=== PATIENT | male | born 1990 | race Two or more races ===

== ENCOUNTER 2025-03-03 01:53 | Emergency (ER) | payer MEDICAID, SELFPAY ==
[2025-03-03 02:04] VITALS: BP 152/102; PULSE 98; RESP 16; TEMP 37.1; O2SAT 97
--- NOTE | 2025-03-03 02:06 | EDNOTE_ITS ---
ED Abdominal Pain RME/HPI General Chief Complaint: Abdominal Pain Stated complaint: RIGHT LOWER ABDOMINAL PAIN Time seen by provider: 03/03/25 02:16 Arrival date/time: 03/03/25 01:53 RME / HPI RME / HPI narrative: See [facility] for Dr. Ford's HPI Documentation. Related Data Previous Rx's ?Medication ?Instructions ?Recorded Sulfamethoxazole/Trimethoprim DS * 1 tab PO BID #14 ta bs 12/09/15 (BACTRIM DS *) acetaminophen 300 mg-codeine 30 mg 2 tab PO Q8H PRN pa in #20 tabs 03/03/25 tablet ondansetron 4 mg disintegrating 4 mg PO TID PRN nausea and 03/03/25 tablet vomiting 30 days #15 tabs Allergies Allergy/AdvReac Type Severity Reaction Status Date / Time NKA* Allergy Uncoded 12/11/15 17:15 Review of Systems Review of Systems Systems Reviewed: All systems reviewed, normal except as documented ED Exam Narrative Physical exam: See [facility] for Dr. Ford's Physical Exam Documentation. Course Quality Measures none Orders Category Date Time Status Saline [Insert IV] NOW Care 03/03/25 02:[address] abdomen pelvis wo con Stat Exams 03/03/25 02:09 Taken US gall bladder Stat Exams 03/03/25 02:09 Taken Amylase Stat Lab 03/03/25 02:35 Completed Bilirubin,Direct Stat Lab 03/03/25 02:35 Completed CBC Stat Lab 03/03/25 02:35 Completed CMP [Comprehensive Metabolic Panel] Stat Lab 03/03/25 02:35 Completed Lipase Stat Lab 03/03/25 02:35 Completed Magnesium Stat Lab 03/03/25 02:35 Completed UA, C/S IF [Urinalysis, C/S if Indicated] Stat Lab 03/03/25 02:41 Completed Famotidine Inj [Pepcid Inj] Med 03/03/25 03:18 Discontinued 20 mg IVP X1 ONE Ketorolac Inj [Toradol Inj] Med 03/03/25 02:08 Discontinued 30 mg IVP X1 ONE Morphine* Inj Med 03/03/25 02:08 Discontinued 4 mg IV X1 ONE Ondansetron Inj [Zofran Inj] Med 03/03/25 02:08 Discontinued 4 mg IVP X1 ONE Pantoprazole Inj [Protonix Inj] Med 03/03/25 03:18 Discontinued 40 mg IVP X1 ONE Ringers Lactated 1000 ml [Lactated Ringers] 1,000 ml Med 03/03/25 02:08 Discontinued IV 1,000 mls/hr Vital Signs Vital signs: Vital Signs Temperature 98.8 F 03/03/25 02:04 Pulse Rate 98 03/03/25 02:04 Respiratory Rate 16 03/03/25 02:04 Blood Pressure 152/102 H 03/03/25 02:04 Pulse Oximetry (%) 97 03/03/25 02:04 Oxygen Delivery Method Room Air 03/03/25 02:04 Abdominal Pain MDM MDM Narrative MDM Narrative:: This section includes all my notes and documentations, including HPI, PE, and ED course. David Ford MD HPI: 34 yo male presents with RUQ and epigastric tenderness and vomiting for several days. Admits to alcohol consumption for several days. No hematemesis or coffee-ground emesis. No rectal bleeding or tarry stools. No history of abdominal surgery. No other complaints. ROS: All negative except as documented in HPI. Physical Exam: General: Alert and oriented. No acute distress when remaining still. Eyes: Conjunctivae and lids clear. ENT: No nasal congestion. Neck: Supple. Heart: RRR. Lungs: No respiratory distress. Good air movement. No rhonchi, wheezing, rales. Abdomen: Soft RUQ and epigastric tenderness. Normal bowel sounds. No distension. No rebound or guarding. Back: No CVA tenderness. Skin: Warm and dry. Neuro: Alert and oriented X 3. I reviewed all diagnostic test results: My review of the abdominal CT report is pancreatitis. My review of the gallbladder US report is NAD. Blood tests and urine tests remarkable for amylase 135 and lipase 185. At this point, diagnoses include: Pancreatitis Treatment here included: LR Toradol 30 mg IV Morphine 4 mg IV Zofran 4 mg IV Protonix 40 mg IV Pepcid 20 mg IV Recommended a trial of outpatient treatment. Based on my best medical judgment, made decision no further evaluation or treatment indicated at this time. Patient and understands and agrees to the discharge instructions customized and printed, see below. Discharge Instructions from Dr. Ford printed for you: 1.? After evaluation, your symptoms are due to pancreatitis from alcohol. 2. There is no other condition such as appendicitis needing surgery. 3.? Zofran for nausea/vomiting.? Tylenol with codeine for severe pain. 4.? Absolutely no alcohol.? Severe pancreatitis eventually can be fatal. 5.? Clear liquid diet for 24 hours and advance slowly as tolerated. 6.? See a private doctor on 03/04/25 for recheck and further care. Ask to review all test results and official radiology reports, to make sure you receive all necessary follow-ups and monitoring. Ask for help to quit alcohol. Ask for help until you are completely better. 7.? Seek immediate medical care with worsening or with any concerns. David Ford MD Patient data [facility] (No prior ED records available for review) and EMS form Clinical information provided by:: patient Social determinants that could affect healthcare access:: none Patient has the following chronic illnesses:: None Reported How is presenting disease/condition affected by chronic disease/condition?: no chronic disease Evaluation data The following diagnostics were reviewed and interpreted by me:: lab results and radiology exam(s) Lab and/or radiology exams considered but not ordered:: None Interpretation Summary: I reviewed all diagnostic test results: My review of the abdominal CT report is pancreatitis. My review of the gallbladder US report is NAD. Blood tests and urine tests remarkable for amylase 135 and lipase 185. Medications / Prescriptions Medications or Prescriptions considered but not ordered:: None Medication administrations:: Medication Administration History Discontinued Medications Famotidine (Famotidine Inj 10 Mg/Ml Vial 2 Ml) 20 mg IVP X1 ONE Stop: 03/03/25 03:19 Lactated Ringer's (Lactated Ringers) 1,000 mls @ 1,000 mls/hr IV .Q1H ONE Stop: 03/03/25 03:07 Last Admin: 03/03/25 03:06 Dose: 1,000 mls/hr Documented By: SR Ketorolac Tromethamine (Ketorolac Inj 30 Mg/Ml Vial) 30 mg IVP X1 ONE Stop: 03/03/25 02:09 Last Admin: 03/03/25 03:05 Dose: 30 mg Documented By: SR Morphine Sulfate (Morphine Sulf Inj 4 Mg/Ml Vial) 4 mg IV X1 ONE Stop: 03/03/25 02:09 Last Admin: 03/03/25 03:05 Dose: 4 mg Documented By: SR Ondansetron HCl (Ondansetron Inj 2 Mg/Ml Inj 2 Ml) 4 mg IVP X1 ONE; Protocol Stop: 03/03/25 02:09 Last Admin: 03/03/25 03:05 Dose: 4 mg Documented By: SR Pantoprazole Sodium (Pantoprazole Inj 40 Mg Vial) 40 mg IVP X1 ONE Stop: 03/03/25 03:19 Treatment here included: LR Toradol 30 mg IV Morphine 4 mg IV Zofran 4 mg IV Protonix 40 mg IV Pepcid 20 mg IV Consultations Consultation(s) initiated? (list below): No Diagnosis Differential diagnosis abdominal pain: acute appendicitis, calculus of kidney, constipation, diverticulitis, gastroenteritis, pancreatitis and small bowel obstruction Most likely diagnosis given after review of the tests above:: Pancreatitis Admission Indicated Admission indicated?: not indicated Explain why admission is indicated or not indicated:: With significant improvement and no condition needing emergent intervention, there was no indication for admission. Admission Request Was there a request for admission?: No Disposition Plan Disposition Plan: Discharge Discharge Attestation Discharge Attestation: The patient and all family members were given an opportunity to ask questions and understood the discharge instructions. Discharge instructions specifically effects, indications for sooner follow up or return to the emergency department, and the expected course of current diagnosis. Patient condition: Stable Discharge Plan Plan Patient Disposition: HOME (Self Care) Prescriptions/Referrals Prescriptions/Med Rec: New acetaminophen-codeine 300-30 mg tablet 2 tab PO Q8H MDD 6 PRN (Reason: pain) Qty: 20 0RF ondansetron 4 mg tablet,disintegrating 4 mg PO TID PRN (Reason: nausea and vomiting) 30 Days Qty: 15 0RF No Action Sulfamethoxazole/Trimethoprim DS * (BACTRIM DS *) 1 TAB tablet 1 tab PO BID Qty: 14 0RF Problem List Clinical Impression: Pancreatitis Patient/Caregiver Discharge Instructions Discharge Activity: activity as tolerated Education Materials: ED Pancreatitis Additional Instructions: Discharge Instructions from Dr. Ford printed for you: 1.? After evaluation, your symptoms are due to pancreatitis from alcohol. 2. There is no other condition such as appendicitis needing surgery. 3.? Zofran for nausea/vomiting.? Tylenol with codeine for severe pain. 4.? Absolutely no alcohol.? Severe pancreatitis eventually can be fatal. 5.? Clear liquid diet for 24 hours and advance slowly as tolerated. 6.? See a private doctor on 03/04/25 for recheck and further care. Ask to review all test results and official radiology reports, to make sure you receive all necessary follow-ups and monitoring. Ask for help to quit alcohol. Ask for help until you are completely better. 7.? Seek immediate medical care with worsening or with any concerns. Instrucciones de isaac del Dr. Ford impresas para usted: 1. Tras la evaluaci?n, taina s?ntomas se deben a andria pancreatitis causada por el alcohol. 2. No presenta ninguna otra afecci?n, kierra apendicitis, que requiera cirug?a. 3. Zofran para las n?useas y los v?mitos. Tylenol con code?na para el dolor intenso. 4. Abst?ngase completamente de consumir alcohol. La pancreatitis grave puede ser mortal. 5. Dieta l?quida adiel radah 24 horas y avance gradualmente seg?n la tolerancia. 6. Consulte con un m?dico particular el [id number] para andria revisi?n y seguimiento. Solicite revisar todos los resultados de las pruebas e informes radiol?gicos oficiales para asegurarse de recibir todo el seguimiento y la monitorizaci?n necesarios. Pida ayuda para dejar el alcohol. Pida ayuda hasta que se recupere por completo. 7. Busque atenci?n m?dica inmediata si taina s?ntomas empeoran o si tiene alguna inquietud. Print Language: Yoruba Stand Alone Forms: Lorie Award Info., Patient Portal Info Letter
--- NOTE | 2025-03-03 02:09 | XR_ITS ---
Examination: CT abdomen and pelvis without contrast. Coronal 3-D reconstructions. Sagittal 2-D reconstructions. Date and time of exam: March 03, 2025, 0223 hours INDICATIONS: Right lower abdominal pain beginning today CTDI: vol (mGy): 7.90 DLP: (mGycm): 473 Technique: Axial images of the abdomen have been obtained, 3 mm slice thickness Intravenous contrast material has not been administered. Low dose protocols were performed. One or more of the following dose reduction techniques were used; automated exposure control, adjustment of the mA and/or KV according to patient size, use of iterative reconstruction technique. Findings: Fatty infiltration throughout the liver no focal liver or splenic lesions No gallstones, gallbladder is distended Suspicious for minimal edema around the pancreatic head Aorta normal size No bowel obstruction Normal appendix No diverticulitis Negative for prostatomegaly Contracted urinary bladder. Small fat-containing left inguinal hernia Intact osseous structures IMPRESSION: Suspicious for minimal edema around the pancreatic head
--- NOTE | 2025-03-03 02:09 | XR_ITS ---
Examination: Abdomen sonogram, Limited Date and time of exam: March 03, 2025, 0245 hours INDICATIONS: Right lower abdominal pain radiating to the back with nausea beginning 2 days ago Technique: Real-time tellez scale transabdominal sonographic images of the upper abdomen obtained. Findings: Normal gallbladder Normal common bile duct 0.2 cm Pancreatic head 2.7 cm Liver 13.7 cm lobular contour no focal liver lesions Normal hepatopetal portal venous flow Patent IVC IMPRESSION: Normal gallbladder
[2025-03-03 02:38] VITALS: PULSE 66; RESP 19; TEMP 36.7; O2SAT 97
--- NOTE | 2025-03-03 02:48 | PC.NURSE ---
Patient came in to the ED from home in a private vehicle accompanied by family member. Patient endorses right upper abdominal pain 9/10 x 2 days worsening over time and occasional nausea and vomiting. Patient denies blood in the emesis. Blood and urine samples have been collected and sent to the lab for testing, IV access achieved successfully, patient taken to get US done.
[2025-03-03 02:50] LABS: Basophils # (Auto) 0.0 Thou/mm3 (0.0-0.2); Basophils % (Auto) 0 % (0-2.5); Eosinophils # (Auto) 0.0 Thou/mm3 (0.0-0.5); Eosinophils % (Auto) 0 % (0-10); Hematocrit 47.8 % (41.0-53.0); Hemoglobin 16.3 g/dL (13.5-16.0); Immature Granulocytes Auto 0.02 Thou/mm3 (0.00-0.00); Lymphocytes # (Auto) 1.2 Thou/mm3 (1.0-4.8); Lymphocytes % (Auto) 16 % (10-50); Mean Corpuscular HGB Conc 34.1 g/dl (31.0-37.0); Mean Corpuscular Hemoglobin 30.9 pg (25.0-35.0); Mean Corpuscular Volume 91 fL (80-100); Monocytes # (Auto) 0.9 Thou/mm3 (0.0-0.8); Monocytes % (Auto) 12 % (0-12); Neutrophils # (Auto) 5.3 Thou/mm3 (1.8-7.7); Neutrophils % (Auto) 71 % (37-80); Nucleated Red Blood Cell # 0.00 Thou/mm3 (0.00-0.00); Nucleated Red Blood Cell % 0 /100 WBC (0); Platelet Count 166 Thou/mm3 (140-440); RDW Standard Deviation 44.9 fL (35.1-43.9); Red Blood Count 5.28 Miln/mm3 (4.50-5.90); White Blood Count 7.4 Thou/mm3 (3.8-10.6)
[2025-03-03 03:01] LABS: Alanine Aminotransferase 31 U/L (10-49); Albumin, Serum 5.3 gm/dL (3.5-5.0); Albumin/Globulin Ratio 1.8 (1.2-2.2); Alkaline Phosphatase 103 U/L (46-116); Amylase 135 U/L (30-118); Anion Gap 10 (7-16); Aspartate Amino Transferase 40 U/L (0-34); BUN/Creatinine Ratio 6 Ratio (12-20); Bilirubin,Direct 0.4 mg/dL (0.0-0.3); Bilirubin,Total 1.2 mg/dL (0.3-1.2); Blood Urea Nitrogen < 5 mg/dL (9-23); Calcium 9.9 mg/dL (8.3-10.6); Calcium (Corrected) 9.9 mg/dL (8.5-10.1); Carbon Dioxide 29.0 mMol/L (20.0-31.0); Chloride 99 mMol/L (98-107); Creatinine (Component) 0.8 mg/dL (0.6-1.3); Globulin 2.9 gm/dL (2.3-3.5); Glucose 111 mg/dL (74-106); Lipase 185 U/L (12-53); Magnesium 2.0 mg/dL (1.6-2.6); Osmolality,Calculated 273 (275-295); Potassium 3.6 mMol/L (3.4-5.1); Sodium 138 mMol/L (136-145); Total Protein 8.2 gm/dL (5.7-8.2); eGFR > 60 See Note
[2025-03-03 03:05] VITALS: TEMP 36.7
[2025-03-03] MEDS: KETOROLAC INJ 30 MG/ML VIAL IVP (03:05)
[2025-03-03] MEDS: ONDANSETRON INJ 2 MG/ML INJ 2 ML 4 MG IVP (03:05)
[2025-03-03] MEDS: MORPHINE SULF INJ 4 MG/ML VIAL IV (03:05)
[2025-03-03] MEDS: RINGERS LACTATED 1000 ML 1,000 ML IV (03:06)
--- NOTE | 2025-03-03 03:26 | PRELIM_ITS ---
CT scan of the abdomen and pelvis without intravenous contrast (axial sections with sagittal and coronal reformats). March 03, 2025 at 0222 hours Clinical History: Right sided abdominal pain. Comparison: No prior study is available for comparison. Findings: The lung bases are clear. Fatty liver infiltration. The gallbladder , adrenal glands, and kidneys are unremarkable. The appendix is normal, best seen on image 122. The urinary bladder is normal. No urinary tract stone or obstruction is identified. No free intraperitoneal air or fluid. Bowel caliber is normal. There is mild fat stranding around the head and uncinate process of the pancreas. No peripancreatic fluid collection. No visible intra or extrahepatic biliary ductal pancreatic duct dilatation. Impression: 1. No urinary tract stone or obstruction is identified. 2. Probably acute pancreatitis. 3. No urinary tract stone or obstruction is identified. Report Electronically Signed By: Vineet Rodriguez 03/03/2025 3:25:58 AM [EST]
[2025-03-03 03:32] LABS: Collection Type, Urine Clean Catch; Squamous Epithelial Cell,Urine 0 /hpf (0-5)
[2025-03-03 03:48] VITALS: PULSE 68; RESP 19; TEMP 36.8; O2SAT 98
[2025-03-03 03:52] LABS: Amorphous Crystals,Urine Present (Absent); Bacteria,Urine Rare; Bilirubin,Urine Negative (Negative); Blood,Urine Negative (Negative); Clarity,Urine Clear (Clear/Hazy); Color,Urine Yellow (Lt Yel-Yel); Culture Indicated,Urine Not Indicated; Glucose, Urine Negative (Negative); Hyaline Casts,Urine < 1 /hpf (0-1); Ketones,Urine 1+ (Negative); Leukocyte Esterase,Urine Negative (Negative); Nitrite,Urine Negative (Negative); PH,Urine 6.5 (5.0-7.0); Protein,Urine 1+ (Neg - Trace); RBC,Urine 1 /hpf (0-3); Specific Gravity,Urine 1.017 (1.001-1.035); Urobilinogen,Urine 8.0 mg/dL (0.0-1.0); WBC,Urine 1 /hpf (0-5)
--- NOTE | 2025-03-03 04:22 | PRELIM_ITS ---
Gallbladder ultrasound. March 03, 2025 0245 hours Clinical history: RUQ tenderness Comparison: None Findings: Gallbladder wall is 3 mm thick. Common bile duct is 2 mm in diameter. Liver is 13.7 cm long. Main portal vein is antegrade. No gallbladder sludge or calculi. No fluid around the gallbladder. Liver is hyperechoic with nodular contour. Impression: Fatty liver. Possible hepatic cirrhosis. Normal gallbladder. Report Electronically Signed By: Vineet Rodriguez 03/03/2025 4:21:00 AM [EST]
== END 2025-03-03 03:48 | disposition home or self-care (01) ==
PROVIDERS: Emergency Provider Emergency Medicine
DX: K85.90 Acute pancreatitis without necrosis or infection, unspecified (principal); R11.0 Nausea
CPT/HCPCS: 36415; 74176; 76705; 80053; 81001; 82150; 82248; 83690; 83735; 85025; 96374; 96375; 99283; J1885; J2270; J2405; J7120

== ENCOUNTER 2025-03-03 14:15 | Inpatient (IN) | payer MEDICAID, SELFPAY ==
[2025-03-03 14:16] VITALS: BMI 29.7
[2025-03-03 14:23] VITALS: BP 163/100; PULSE 66; RESP 20; TEMP 37.1; O2SAT 98
--- NOTE | 2025-03-03 15:19 | EKG_ITS ---
[facility] Test Date: 2025-03-03 Pat Name: RADHA POOLE Department: Room: - Gender: Male Registered Midwife: : 1990 Requested By: Myles Wood Order Number: [id number] Reading MD: Myles Wood Measurements Intervals [place] Rate: 53 P: 37 PA: 150 QRS: 20 QRSD: 118 T: 17 QT: 428 QTc: 403 Interpretive Statements SINUS BRADYCARDIA MODERATE INTRAVENTRICULAR CONDUCTION DELAY [110+ ms QRS DURATION] No previous ECG available for comparison /store/S0/[id number]/[id number].pdf
[2025-03-03] MEDS: SODIUM CHLORIDE 0.9% 1000 ML 1,000 ML 999 ML IV ×2 (15:24→17:06)
--- NOTE | 2025-03-03 15:24 | EDNOTE_ITS ---
ED General RME/HPI General Chief complaint: Abdominal Pain Stated complaint: ABD PAIN, NAUSEA, DIZZINESS DX WITH PANCREAT Time Seen by Provider: 03/03/25 15:18 Arrival date/time: 03/03/25 14:15 CC: Abdominal pain HPI patient has had abdominal pain states he has pancreatitis, review the medical record shows that he was here at 3 AM this morning had a complete workup was discharged with a lipase of 185. Prescriptions were sent to his pharmacy [facility] which is closed today. Patient promptly returned today stating his pain is a 10 out of 10. The patient is not writhing. Heart rate is 66 upon initial assessment he is not in any acute distress. At 1527, the patient admits he is only here for pain medicine as he cannot get access to his prescriptions from last night's visit due to his pharmacy being closed today. Related Data Previous Rx's ?Medication ?Instructions ?Recorded Sulfamethoxazole/Trimethoprim DS * 1 tab PO BID #14 ta bs 12/09/15 (BACTRIM DS *) acetaminophen 300 mg-codeine 30 mg 2 tab PO Q8H PRN pa in #20 tabs 03/03/25 tablet ondansetron 4 mg disintegrating 4 mg PO TID PRN nausea and 03/03/25 tablet vomiting 30 days #15 tabs Allergies Allergy/AdvReac Type Severity Reaction Status Date / Time No Known Allergies Allergy Unverified 03/03/25 15:21 Review of Systems Review of Systems Narrative Review of Systems: GEN: No fever, no chills, no weight loss EYES: No discharge, no visual changes, no pain HEENT: No ear pain, no congestion, no sore throat PULM: No shortness of breath, no cough, no congestion CV: No chest pain, no dyspnea on exertion, no palpitations GI: No nausea, no vomiting, no diarrhea, + pain, no constipation : No frequency, no urgency, no dysuria MUSC/SKEL: No joint pain, no back pain SKIN: No rash PSYCH: No hallucinations, no depression HEME/LYMPH: No easy bleeding or bruising tendencies NEURO: No weakness, no headache Past Medical History Past Medical History CARDIAC: Negative Cardiac Disorders or Congestive Heart Failure RESPIRATORY: Negative Chronic Obstructive Pulmonary Disease (COPD) GASTROINTESTINAL: Negative Gastrointestinal Disorders GENITOURINARY: Negative Genitourinary Disorders or Renal Disease MUSCULOSKELETAL: Negative Musculoskeletal Disorders ENDOCRINE: Negative Endocrine Disorders, Diabetes Mellitus Type 1 or Diabetes Mellitus Type 2 HEMATOLOGIC: Negative Blood Disorders Family History FAMILY HISTORY: Negative Family Cardiac Disorders Social History SMOKING STATUS: Never smoker ED Exam Narrative Physical exam: [General: In mild discomfort but not in any acute distress Head normocephalic HEENT: Within acceptable limits Neck is supple nontender Chest equal chest rise nontender to palpation Respiratory: Clear to auscultation no wheezes crackles or rubs CV: Rate rhythm is regular no murmurs rubs or clicks Abdomen is soft nontender no masses positive bowel sounds all 4 quadrants Back: No CVA tenderness no spinous process tenderness from cervical spine thoracic and lumbar spine Skin: Intact no petechiae rash induration ulceration or crepitus Extremities: Moving all extremity against resistance cap refill less than 2 seconds neurosensory intact Neuro: Awake alert oriented x3 Glascow coma 15 no focal deficits] Course Course Course Narrative: Review the laboratory results show the transaminitis and T. bili are unchanged and noted that last night the ultrasound and the CT show there is no CBD dilatation so I am not too worried at this time about choledocholithiasis. Alcohol level is 0. However the patient has had 100 point rise in the lipase some concern the patient will be back in 12 hours as this continues to rise. Therefore this patient's case was discussed with Dr. Gonzáles who agrees to accept the patient on behalf of Dr. Galvan, attending, who agrees to accept the patient for admission. Quality Measures none Orders Category Date Time Status EKG (ED ONLY) *Do not use* NOW Care 03/03/25 15:19 Completed Saline [Insert IV] NOW Care 03/03/25 15:19 Active EKG (ED Only) Stat Exams 03/03/25 15:19 Draft Alcohol, Blood Medical Stat Lab 03/03/25 15:20 Completed B-Type Natriuretic Peptide Stat Lab 03/03/25 15:20 Completed CBC Stat Lab 03/03/25 15:20 Completed Comprehensive Metabolic Panel Stat Lab 03/03/25 15:20 Completed Drug Screen,Urine Stat Lab 03/03/25 15:30 Completed Lipase Stat Lab 03/03/25 15:20 Completed Magnesium Stat Lab 03/03/25 15:20 Completed Partial Thromboplastin Time Stat Lab 03/03/25 15:20 Completed Prothrombin Time with INR Stat Lab 03/03/25 15:20 Completed Urinalysis, C/S if Indicated Stat Lab 03/03/25 15:30 Completed Morphine* Inj Med 03/03/25 16:39 Discontinued 4 mg IVP X1 ONE Ondansetron Inj [Zofran Inj] Med 03/03/25 16:39 Discontinued 4 mg IVP X1 ONE Sodium Chloride 0.9% 1000 ml [Ns] 1,000 ml Med 03/03/25 16:40 Active IV 125 mls/hr Sodium Chloride 0.9% 1000 ml [Ns] 1,000 ml Med 03/03/25 15:19 Discontinued IV 999 mls/hr Sodium Chloride 0.9% 1000 ml [Ns] 1,000 ml Med 03/03/25 16:43 Active IV 999 mls/hr oxyCODONE/APAP 5/325 [Percocet 5/325] Med 03/03/25 15:27 Discontinued 1 tab PO X1 ONE Vital Signs Vital signs: Vital Signs Temperature 98.8 F 03/03/25 14:23 Pulse Rate 66 03/03/25 14:23 Respiratory Rate 20 03/03/25 14:23 Blood Pressure 163/100 H 03/03/25 14:23 Pulse Oximetry (%) 98 03/03/25 14:23 Oxygen Delivery Method Room Air 03/03/25 14:23 Discharge Plan Plan Patient Disposition: HOME (Self Care) Prescriptions/Referrals Prescriptions/Med Rec: No Action Sulfamethoxazole/Trimethoprim DS * (BACTRIM DS *) 1 TAB tablet 1 tab PO BID Qty: 14 0RF acetaminophen-codeine 300-30 mg tablet 2 tab PO Q8H MDD 6 PRN (Reason: pain) Qty: 20 0RF ondansetron 4 mg tablet,disintegrating 4 mg PO TID PRN (Reason: nausea and vomiting) 30 Days Qty: 15 0RF Referrals: No Primary/Family,Physician [Primary Care Provider] - In 1 week Problem List Clinical Impression: Pancreatitis, Intractable abdominal pain Patient/Caregiver Discharge Instructions Print Language: Turkmen Stand Alone Forms: Lorie Award Info., Patient Portal Info Letter PA/FLIGHT OPERATIONS INSPECTOR Supervising Physician PA/FLIGHT OPERATIONS INSPECTOR Supervising Physician: Myles Saldana ENP [facility] Medical Records reviewed [facility] Meds/Rx considered, not ordered None Labs/Rad/Tests considered, not ordered None Chronic Illness/Social Conditions Explain: Region pancreatitis diagnosis, drinks 3 beers every day. Medication Administration(s) Medication Administration History Sodium Chloride (Ns) 1,000 mls @ 125 mls/hr IV .Q8H KLEVER Stop: 04/02/25 16:39 Last Admin: 03/03/25 17:06 Dose: 125 mls/hr Documented By: BD Sodium Chloride (Ns) 1,000 mls @ 999 mls/hr IV .Q1H1M ONE Stop: 03/03/25 17:43 Last Admin: 03/03/25 17:06 Dose: 999 mls/hr Documented By: BD Discontinued Medications Sodium Chloride (Ns) 1,000 mls @ 999 mls/hr IV .Q1H1M ONE Stop: 03/03/25 16:19 Last Infusion: 03/03/25 16:44 Dose: Infused Documented By: Admin: 03/03/25 15:24 Dose: 999 mls/hr Documented By: BY Morphine Sulfate (Morphine Sulf Inj 4 Mg/Ml Vial) 4 mg IVP X1 ONE Stop: 03/03/25 16:40 Last Admin: 03/03/25 17:05 Dose: 4 mg Documented By: BD Ondansetron HCl (Ondansetron Inj 2 Mg/Ml Inj 2 Ml) 4 mg IVP X1 ONE; Protocol Stop: 03/03/25 16:40 Last Admin: 03/03/25 17:05 Dose: 4 mg Documented By: BD Oxycodone/Acetaminophen (Oxycodone/Apap 5/325 Tablet) 1 tab PO X1 ONE Stop: 03/03/25 15:28 Last Admin: 03/03/25 15:36 Dose: 1 tab Documented By: BY
--- NOTE | 2025-03-03 15:27 | PC.NURSE ---
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
[2025-03-03 15:38] LABS: Collection Type, Urine Clean Catch; Squamous Epithelial Cell,Urine 0 /hpf (0-5); WBC,Urine 0 /hpf (0-5)
[2025-03-03 15:45] LABS: Basophils # (Auto) 0.0 Thou/mm3 (0.0-0.2); Basophils % (Auto) 0 % (0-2.5); Eosinophils # (Auto) 0.0 Thou/mm3 (0.0-0.5); Eosinophils % (Auto) 0 % (0-10); Hematocrit 48.3 % (41.0-53.0); Hemoglobin 16.3 g/dL (13.5-16.0); Immature Granulocytes Auto 0.02 Thou/mm3 (0.00-0.00); Lymphocytes # (Auto) 0.4 Thou/mm3 (1.0-4.8); Lymphocytes % (Auto) 5 % (10-50); Mean Corpuscular HGB Conc 33.7 g/dl (31.0-37.0); Mean Corpuscular Hemoglobin 31.2 pg (25.0-35.0); Mean Corpuscular Volume 93 fL (80-100); Monocytes # (Auto) 0.6 Thou/mm3 (0.0-0.8); Monocytes % (Auto) 7 % (0-12); Neutrophils # (Auto) 7.0 Thou/mm3 (1.8-7.7); Neutrophils % (Auto) 87 % (37-80); Nucleated Red Blood Cell # 0.00 Thou/mm3 (0.00-0.00); Nucleated Red Blood Cell % 0 /100 WBC (0); Platelet Count 146 Thou/mm3 (140-440); RDW Standard Deviation 46.0 fL (35.1-43.9); Red Blood Count 5.22 Miln/mm3 (4.50-5.90); White Blood Count 8.1 Thou/mm3 (3.8-10.6)
[2025-03-03 15:57] LABS: Amphetamine/Methamp Scrn,U Negative (Negative); Barbiturate Screen,Urine Negative (Negative); Benzodiazepines Screen,Urine Negative (Negative); Benzoylecgonine Screen, Ur Negative (Negative); Fentanyl Screen,Urine Negative (Negative); Opiate Screen,Urine Negative (Negative); THC Screen,Urine Positive (Negative)
[2025-03-03 16:00] LABS: Amorphous Crystals,Urine Present (Absent); Bilirubin,Urine Negative (Negative); Blood,Urine Negative (Negative); Color,Urine Yellow (Lt Yel-Yel); Culture Indicated,Urine Not Indicated; Glucose, Urine Negative (Negative); Ketones,Urine 2+ (Negative); Leukocyte Esterase,Urine Negative (Negative); Nitrite,Urine Negative (Negative); PH,Urine 8.0 (5.0-7.0); Protein,Urine Trace (Neg - Trace); RBC,Urine 1 /hpf (0-3); Specific Gravity,Urine 1.016 (1.001-1.035); Urobilinogen,Urine 4.0 mg/dL (0.0-1.0)
[2025-03-03 16:03] LABS: Clarity,Urine Turbid (Clear/Hazy)
[2025-03-03 16:11] LABS: Alanine Aminotransferase 33 U/L (10-49); Albumin, Serum 5.0 gm/dL (3.5-5.0); Albumin/Globulin Ratio 1.7 (1.2-2.2); Alcohol, Blood Medical < 3.0 mg/dL (0-10.0); Alkaline Phosphatase 96 U/L (46-116); Anion Gap 11 (7-16); Aspartate Amino Transferase 44 U/L (0-34); BUN/Creatinine Ratio 7 Ratio (12-20); Bilirubin,Total 1.0 mg/dL (0.3-1.2); Blood Urea Nitrogen < 5 mg/dL (9-23); Calcium 9.4 mg/dL (8.3-10.6); Calcium (Corrected) 9.4 mg/dL (8.5-10.1); Carbon Dioxide 26.9 mMol/L (20.0-31.0); Chloride 97 mMol/L (98-107); Creatinine (Component) 0.7 mg/dL (0.6-1.3); Estimated Creatinine Clearance 147.9 mL/min (>60); Globulin 3.0 gm/dL (2.3-3.5); Glucose 113 mg/dL (74-106); Lipase 284 U/L (12-53); Magnesium 2.0 mg/dL (1.6-2.6); Osmolality,Calculated 268 (275-295); Potassium 3.8 mMol/L (3.4-5.1); Sodium 135 mMol/L (136-145); Total Protein 8.0 gm/dL (5.7-8.2); eGFR > 60 See Note
[2025-03-03 16:21] LABS: B-Type Natriuretic Peptide < 20 pg/mL (0-100)
[2025-03-03 16:32] VITALS: BP 150/90; PULSE 86; RESP 18; TEMP 36.9; O2SAT 95
[2025-03-03 16:33] LABS: INR 1.1 (0.9-1.3); Partial Thromboplastin Time 28.4 Seconds (22.0-36.0); Prothrombin Time 11.4 Seconds (9.0-12.2)
[2025-03-03] MEDS: MORPHINE SULF INJ 4 MG/ML VIAL IVP ×2 (17:05→19:35)
[2025-03-03] MEDS: ONDANSETRON INJ 2 MG/ML INJ 2 ML 4 MG IVP (17:05)
[2025-03-03] MEDS: SODIUM CHLORIDE 0.9% 1000 ML 1,000 ML 125 ML IV (17:06)
--- NOTE | 2025-03-03 17:21 | PD.RESHP ---
Documentation for date of: 03/03/25 [facility] History of Present Illness History of present illness: Mr. Markham is a 34-year-old male with past medical history significant for alcohol use disorder presented to the ED overnight complaining of severe right upper quadrant and epigastric pain with nausea and vomiting that started 3 days ago. Patient states that he has been in severe abdominal pain which radiates to his back for the past 3 days and not responding to any [id number] pain medications. Patient states he has been taking ibuprofen without relief. This morning patient reports he had 3 episode of vomiting therefore was unable to keep anything down however he has made several attempts to eat. Patient denies any shortness of breath, palpitation, chest pain or diaphoresis. Patient also denies any fever, chills, diarrhea, hematuria melena or hematochezia. Patient's is at bedside who reports patient did not drink any alcohol for the past 4 months however in the last 1 week he has been increasingly drinking daily. Patient admits he has been drinking 18 pack of beer daily for a week and last alcohol drink was 3 days ago. PMH: No significant past medical history PSH: No surgical history SH: Patient reports he has been drinking alcohol for the last 1 week, denies tobacco or illicit drug use Allergies: No known allergies to medications Home medications: Patient reports he only takes ibuprofen occasionally for pain ED course: In the ED initial blood pressure was 163/100 with remaining of vitals within normal limits. Labs are unremarkable with the exception of AST 44 and lipase 185 --> 284 CT of abdomen is suspicious for minimal edema around the pancreatic head Gallbladder ultrasound is within normal findings EKG is sinus bradycardia with no acute ST or T wave changes, QTc is 403 In the ED patient received 2 L NS bolus with 1 L NS running at 125mls/hr In the ED patient received [place] 5 x 1, morphine 4 mg x 1, Zofran 4 mg x 1 Review of Systems Review of Systems Systems Reviewed: All systems reviewed, normal except as documented Exam Vital Signs Temp Pulse Resp BP Pulse Ox O2 Del Method 98.4 F 86 18 150/90 H 95 Room Air 03/03/25 16:32 03/03/25 16:32 03/03/25 16:32 03/03/25 16:32 03/03/25 16:32 03/03/25 16:32 Narrative Exam GENERAL: A&Ox3 . Awake, Not in acute distress NEURO: no focal neurological deficits HEENT: Atraumatic, Normocephalic. mucous membranes moist. Eyes open, symmetrical, & clear HEART: Normal Heart Sounds LUNGS: Clear to auscultation with no wheezing or crackles. ABDOMEN: soft, non-distended, tenderness to palpation in all 4 quadrants, bowel sounds heard, no guarding or rebound tenderness SKIN: No Rash or ecchymoses EXTREMITIES: No edema, tenderness, able to move all 4 extremities, pedal pulses palpated Results: Labs 03/03/25 15:20 03/03/25 15:20 Labs: Short CBC 03/03/25 Range/Units 15:20 WBC 8.1 (3.8-10.6) Thou/mm3 Hgb 16.3 H (13.5-16.0) g/dL Hct 48.3 (41.0-53.0) % Plt Count 146 (140-440) Thou/mm3 BMP 03/03/25 15:20 Sodium 135 L Potassium 3.8 Chloride 97 L Carbon Dioxide 26.9 BUN < 5 L Creatinine 0.7 Glucose 113 H Calcium 9.4 Liver Function 03/03/25 Range/Units 15:20 Total Bilirubin 1.0 (0.3-1.2) mg/dL AST 44 H (0-34) U/L ALT 33 (10-49) U/L Alkaline Phosphatase 96 (46-116) U/L Albumin 5.0 (3.5-5.0) gm/dL Urine 03/03/25 Range/Units 15:30 Urine Color Yellow (Lt Yel-Yel) Urine Clarity Turbid A (Clear/Hazy) Urine pH 8.0 H (5.0-7.0) Ur Specific [place] 1.016 (1.001-1.035) Urine Protein Trace (Neg - Trace) Urine Glucose (UA) Negative (Negative) Quality Measures Quality Measures none Medications Home Medications and Allergies Allergies Allergy/AdvReac Type Severity Reaction Status Date / Time No Known Allergies Allergy Unverified 03/03/25 15:21 Visit Medications Acetaminophen (Acetaminophen 325 Mg Tablet) 650 mg PO Q6H PRN PRN Reason: Fever >101.5 Stop: 04/02/25 17:10 Heparin Sodium (Porcine) (Heparin Sod Inj 5000 Unit/Ml Vial) 5,000 unit SC Q12HR KLEVER Stop: 03/17/25 17:29 Sodium Chloride (Ns) 1,000 mls @ 125 mls/hr IV .Q8H KLEVER Stop: 04/02/25 16:39 Last Admin: 03/03/25 17:06 Dose: 125 mls/hr Sodium Chloride (Ns) 1,000 mls @ 999 mls/hr IV .Q1H1M ONE Stop: 03/03/25 17:43 Last Admin: 03/03/25 17:06 Dose: 999 mls/hr Morphine Sulfate (Morphine Sulf Inj 4 Mg/Ml Vial) 2 mg IVP Q2H PRN PRN Reason: moderate pain 4-6 Morphine Sulfate (Morphine Sulf Inj 4 Mg/Ml Vial) 4 mg IVP Q4HR PRN PRN Reason: severe pain 7-10 Stop: 03/08/25 17:17 Ondansetron HCl (Ondansetron Inj 2 Mg/Ml Inj 2 Ml) 4 mg IVP Q6H PRN; Protocol PRN Reason: NAUSEA OR VOMITING Stop: 04/02/25 17:10 Discontinued Medications Sodium Chloride (Ns) 1,000 mls @ 999 mls/hr IV .Q1H1M ONE Stop: 03/03/25 16:19 Last Infusion: 03/03/25 16:44 Dose: Infused Morphine Sulfate (Morphine Sulf Inj 4 Mg/Ml Vial) 4 mg IVP X1 ONE Stop: 03/03/25 16:40 Last Admin: 03/03/25 17:05 Dose: 4 mg Ondansetron HCl (Ondansetron Inj 2 Mg/Ml Inj 2 Ml) 4 mg IVP X1 ONE; Protocol Stop: 03/03/25 16:40 Last Admin: 03/03/25 17:05 Dose: 4 mg Oxycodone/Acetaminophen (Oxycodone/Apap 5/325 Tablet) 1 tab PO X1 ONE Stop: 03/03/25 15:28 Last Admin: 03/03/25 15:36 Dose: 1 tab Assessment & Plan Plan Mr. Markham is a 34-year-old male with past medical history significant for alcohol use disorder presented to the ED overnight complaining of severe right upper quadrant and epigastric pain with nausea and vomiting that started 3 days ago. Patient is admitted to the hospital for management for acute pancreatitis. #Acute pancreatitis #Nausea/vomiting #Abdominal pain -Patient reports for the past 3 days he has been having severe right upper quadrant and epigastric pain accompanied with nausea vomiting. -AST 44 and lipase 185 --> 284 -CT of abdomen is suspicious for minimal edema around the pancreatic head Plan: -In the ED patient received 2 L of NS bolus -Maintenance fluid fluid with LR 125cc/hr - NPO now, advance diet as tolerated -Pain management with IV morphine -Lipid panel for a.m. labs - Monitor daily CBC and CMP #Alcohol use disorder - Patient reports he has been drinking 18 pack of beer daily for the past 1 week patient does have a history of alcohol use disorder and states sober for 4 months prior to relapsing - On admission alcohol level is less than 3.0 - Patient states he has not had a drink for the past 3 days because he has been in so much pain and nausea vomiting Plan: - CIWA on admission is 0 - CIWA protocol is in place - Thiamine and folic acid daily Health Maintenance Disposition: Medsurg for management of acute pancreatitis requiring IV fluids and IV pain meds DVT Prophylaxis: Heparin 5000 units SC Q12 hrs GI Prophylaxis: Pantoprozol-40 IV Qday Diet: Cardiac or Diabetic Diet, carbohydrate consistent Lines: Peripheral lines Code status: Full Assessment and plan discussed with my attending physician Dr. Cole Gonzáles (PGY-2)- Internal medicine resident Attending Provider Attestation/Addendum I have seen and examined the patient. I was physically present for the florentino portions of the services provided including history, physical exam, diagnosis, treatment plans and orders. I agree with assessment and plan of care as documented by residents. After examination of the patient and review of the clinical data I feel that this patient needs admission to the hospital for further treatment/evaluation. Even though this this note was carefully revised there may still be minor errors in senior sales operations manager due to voice recognition software. Luz Galvan MD
[2025-03-03 17:24] VITALS: PULSE 85; RESP 20; RESP 95
[2025-03-03] MEDS: HEPARIN SOD INJ 5000 UNIT/ML VIAL SC (17:55)
[2025-03-03] MEDS: RINGERS LACTATED 1000 ML 1,000 ML 125 ML IV (17:59)
[2025-03-03 18:03] VITALS: BP 146/88; PULSE 61; RESP 17; TEMP 37.1; O2SAT 96
[2025-03-03 18:04] VITALS: BMI 27.9
--- NOTE | 2025-03-03 18:21 | PC.NURSE ---
report called to ela for med surge
[2025-03-03 19:21] VITALS: BMI 30.5
[2025-03-03 20:00] VITALS: BP 144/89; PULSE 51; RESP 17; TEMP 36.4; O2SAT 93
[2025-03-03] MEDS: FOLIC ACID 1 MG TABLET PO (20:06)
[2025-03-03] MEDS: THIAMINE 100 MG TABLET PO (20:06)
[2025-03-04] VITALS (8 sets, daily range): BP systolic 122–158; BP diastolic 78–99; PULSE 63–73; RESP 14–97; TEMP 36.2–36.6; O2SAT 95–99
[2025-03-04] MEDS: MORPHINE SULF INJ 4 MG/ML VIAL IVP (00:53)
[2025-03-04] MEDS: RINGERS LACTATED 1000 ML 1,000 ML 125 ML IV ×3 (01:41→22:25)
[2025-03-04 05:57] LABS: Basophils # (Auto) 0.0 Thou/mm3 (0.0-0.2); Basophils % (Auto) 0 % (0-2.5); Eosinophils # (Auto) 0.0 Thou/mm3 (0.0-0.5); Eosinophils % (Auto) 0 % (0-10); Hematocrit 45.0 % (41.0-53.0); Hemoglobin 15.2 g/dL (13.5-16.0); Immature Granulocytes Auto 0.02 Thou/mm3 (0.00-0.00); Lymphocytes # (Auto) 1.7 Thou/mm3 (1.0-4.8); Lymphocytes % (Auto) 18 % (10-50); Mean Corpuscular HGB Conc 33.8 g/dl (31.0-37.0); Mean Corpuscular Hemoglobin 31.7 pg (25.0-35.0); Mean Corpuscular Volume 94 fL (80-100); Monocytes # (Auto) 1.3 Thou/mm3 (0.0-0.8); Monocytes % (Auto) 14 % (0-12); Neutrophils # (Auto) 6.5 Thou/mm3 (1.8-7.7); Neutrophils % (Auto) 68 % (37-80); Nucleated Red Blood Cell # 0.00 Thou/mm3 (0.00-0.00); Nucleated Red Blood Cell % 0 /100 WBC (0); Platelet Count 134 Thou/mm3 (140-440); RDW Standard Deviation 46.3 fL (35.1-43.9); Red Blood Count 4.79 Miln/mm3 (4.50-5.90); White Blood Count 9.6 Thou/mm3 (3.8-10.6)
[2025-03-04 06:31] LABS: Alanine Aminotransferase 29 U/L (10-49); Albumin, Serum 4.6 gm/dL (3.5-5.0); Albumin/Globulin Ratio 1.8 (1.2-2.2); Alkaline Phosphatase 84 U/L (46-116); Anion Gap 11 (7-16); Aspartate Amino Transferase 32 U/L (0-34); BUN/Creatinine Ratio 8 Ratio (12-20); Bilirubin,Total 1.0 mg/dL (0.3-1.2); Blood Urea Nitrogen < 5 mg/dL (9-23); Calcium 9.0 mg/dL (8.3-10.6); Calcium (Corrected) 9.0 mg/dL (8.5-10.1); Carbon Dioxide 27.3 mMol/L (20.0-31.0); Cardiac Risk Estimate 2.8 RATIO (4.0-6.7); Chloride 101 mMol/L (98-107); Cholesterol 201 mg/dL (132-200); Creatinine (Component) 0.6 mg/dL (0.6-1.3); Estimated Creatinine Clearance 174.8 mL/min (>60); Globulin 2.6 gm/dL (2.3-3.5); Glucose 82 mg/dL (74-106); HDL Cholesterol 73 mg/dL (40-60); LDL Cholesterol,Calculated 109 mg/dL (0-130); Magnesium 2.1 mg/dL (1.6-2.6); Osmolality,Calculated 273 (275-295); Phosphorous 3.1 mg/dL (2.4-5.1); Potassium 4.1 mMol/L (3.4-5.1); Sodium 139 mMol/L (136-145); Total Protein 7.2 gm/dL (5.7-8.2); Triglycerides 97 mg/dL (30-150); eGFR > 60 See Note
[2025-03-04] MEDS: THIAMINE 100 MG TABLET PO ×2 (09:13→20:19)
[2025-03-04] MEDS: FOLIC ACID 1 MG TABLET PO ×2 (09:13→20:19)
[2025-03-04] MEDS: HEPARIN SOD INJ 5000 UNIT/ML VIAL SC ×2 (09:14→20:19)
--- NOTE | 2025-03-04 13:48 | ESPR_ITS ---
<Statement entered by Jase Johnson MD - 03/04/25 14:44> No acute overnight events. Seen and examined at bedside and resting comfortably in bed. Pain well-managed with current regimen and will decrease dosages as he has overall been tolerating well. Additionally, tolerating his diet and we will transition to full liquid today and solids tomorrow and if he tolerates well dissipate discharge in the next [place] 4 to 48 hours. CIWA protocol in place but scores have been unremarkable. ----- Note reviewed and agree with care plan as documented. Please refer to the note below for further details. Plan discussed with attending physician Dr. Cole Johnson MD PGY-2 Internal Medicine Documentation for date of: 03/04/25 Subjective Subjective Interval history: No acute event overnight. Patient seen examined bedside. Patient has no active complaint. Patient denies nausea, vomiting, abdominal pain and chills. He mentions having occasional abdominal discomfort with a rate of 4 out of 10 intensity. CIWA score 0. Lipid panel results significant for cholesterol 201, HDL cholesterol 73. Otherwise other labs unremarkable. Reduce morphine 4 mg to 2 mg patient abdominal pain is improved. Advance diet to full liquid diet. Exam Vital Signs Temp Pulse Resp BP Pulse Ox O2 Del Method 97.6 F 72 16 137/79 H 95 Room Air 03/04/25 11:37 03/04/25 11:37 03/04/25 11:37 03/04/25 11:37 03/04/25 11:37 03/04/25 11:37 Narrative Exam General: Alert, no acute distress.Conversational and non-toxic appearing. Skin: Warm, dry, intact. No rash or ecchymoses. Head: Normocephalic, atraumatic. Eye: Normal conjunctiva, PERRL. Throat: Oral mucosa moist. No obvious lesions in oropharynx. Cardiovascular: Regular rate and rhythm, no murmur, +S1/S2. Respiratory: Lungs are clear to auscultation, respirations unlabored, no crackles, no wheezing. Gastrointestinal: Soft, nontender, non-distended. No guarding or rebound tenderness. Extremities: No edema, no cyanosis, no clubbing. Neuro: Alert and oriented x3.No focal deficits observed. Conversant, moving all extremities. No overt cerebellar signs/incoordination. Psychiatric: Cooperative, appropriate affect Objective Labs 03/04/25 04:30 03/04/25 04:30 Labs: Laboratory Results - last 24 hr 03/03/25 03/03/25 03/04/25 15:20 15:30 04:30 WBC 8.1 9.6 RBC 5.22 4.79 Hgb 16.3 H 15.2 Hct 48.3 45.0 MCV 93 94 MCH 31.2 31.7 MCHC 33.7 33.8 RDW Std Deviation 46.0 H 46.3 H Plt Count 146 134 L Neut % (Auto) 87 H 68 Lymph % (Auto) 5 L 18 [place] % (Auto) 7 14 H Eos % (Auto) 0 0 Baso % (Auto) 0 0 Neut # (Auto) 7.0 6.5 Lymph # (Auto) 0.4 L 1.7 [place] # (Auto) 0.6 1.3 H Eos # (Auto) 0.0 0.0 Baso # (Auto) 0.0 0.0 Immature Gran # (Auto) 0.02 H 0.02 H Absolute Nucleated RBC 0.00 0.00 Immature Gran % 0 0 Nucleated RBC % 0 0 PT 11.4 INR 1.1 APTT 28.4 Sodium 135 L 139 Potassium 3.8 4.1 Chloride 97 L 101 Carbon Dioxide 26.9 27.3 Anion Gap 11 11 BUN < 5 L < 5 L Creatinine 0.7 0.6 Estim Creat Clear Calc 147.9 174.8 eGFR > 60 > 60 BUN/Creatinine Ratio 7 L 8 L Glucose 113 H 82 Calculated Osmolality 268 L 273 L Calcium 9.4 9.0 Corrected Calcium 9.4 9.0 Phosphorus 3.1 Magnesium 2.0 2.1 Total Bilirubin 1.0 1.0 AST 44 H 32 ALT 33 29 Alkaline Phosphatase 96 84 B-Natriuretic Peptide < 20 Total Protein 8.0 7.2 Albumin 5.0 4.6 Globulin 3.0 2.6 Albumin/Globulin Ratio 1.7 1.8 Triglycerides 97 Cholesterol 201 H LDL Cholesterol, Calc 109 HDL Cholesterol 73 H Cholesterol/HDL Ratio 2.8 L Lipase 284 H D Ur Collection Type Clean Catch Urine Color Yellow Urine Clarity Turbid A Urine pH 8.0 H Ur Specific [place] 1.016 Urine Protein Trace Urine Glucose (UA) Negative Urine Ketones 2+ A Urine Blood Negative Urine Nitrite Negative Urine Bilirubin Negative Urine Urobilinogen (Auto) 4.0 Ur Leukocyte Esterase Negative Urine RBC 1 Urine WBC 0 Ur Squamous Epith Cells 0 Amorphous Crystals Present A Urine Bacteria None Ur Culture Indicated? Not Indicated Urine Opiates Screen Negative Urine Fentanyl Screen Negative Ur Barbiturates Screen Negative U Amphetamin/Meth Scrn Negative U Benzodiazepines Scrn Negative U Cocaine Metab Screen Negative U Marijuana (THC) Screen Positive A Ethyl Alcohol < 3.0 Quality Measures Quality Measures none Assessment & Plan Assessment Current Active Medications: Generic Name Dose Route Start Last Admin Trade Name Freq PRN Reason Stop Dose Admin Acetaminophen 650 mg 03/04/25 13:30 Acetaminophen 325 Mg Tablet PO 04/02/25 17:10 Q6H PRN Fever >100.4 Protocol Hydrocodone Bitart/Acetaminophen 1 tab 03/03/25 17:49 Hydrocodone/Apap 5/325 Tablet PO 03/08/25 17:48 Q6HR PRN Pain 4-6 Folic Acid 1 mg 03/03/25 21:00 03/04/25 09:13 Folic Acid 1 Mg Tablet PO 03/08/25 20:59 1 mg BID KLEVER Administration Heparin Sodium (Porcine) 5,000 unit 03/03/25 17:30 03/04/25 09:14 Heparin Sod Inj 5000 Unit/Ml Vial SC 03/17/25 17:29 5,000 unit Q12HR KLEVER Administration Lactated Ringer's 1,000 mls @ 125 mls/hr 03/03/25 17:50 03/04/25 11:08 Lactated Ringers IV 04/02/25 17:49 125 mls/hr .Q8H KLEVER Administration Lorazepam 0.5 mg 03/03/25 17:27 Lorazepam 0.5 Mg Tablet PO 03/08/25 17:26 Q2H PRN CIWA 2-6 Lorazepam 1 mg 03/03/25 17:31 Lorazepam 2 Mg/Ml Vial IVP 03/08/25 17:26 Q2H PRN CIWA 7-11 Lorazepam 2 mg 03/03/25 17:31 Lorazepam 2 Mg/Ml Vial IVP 03/08/25 17:26 Q2H PRN CIWA 12-20 Morphine Sulfate 2 mg 03/04/25 11:20 Morphine Sulf Inj 4 Mg/Ml Vial IVP 03/08/25 17:17 Q4HR PRN severe pain 7-10 Ondansetron HCl 4 mg 03/03/25 17:11 Ondansetron Inj 2 Mg/Ml Inj 2 Ml IVP 04/02/25 17:10 Q6H PRN NAUSEA OR VOMITING Protocol Pantoprazole Sodium 40 mg 03/04/25 09:00 03/04/25 09:14 Pantoprazole Inj 40 Mg Vial IVP 04/03/25 08:59 40 mg QDAY KLEVER Administration Thiamine HCl 100 mg 03/03/25 21:00 03/04/25 09:13 Thiamine 100 Mg Tablet PO 03/08/25 20:59 100 mg BID KLEVER Administration Plan Mr. Markham is a 34-year-old male with past medical history significant for alcohol use disorder presented to the ED overnight complaining of severe right upper quadrant and epigastric pain with nausea and vomiting that started 3 days ago. Patient is admitted to the hospital for management for acute pancreatitis. #Acute pancreatitis #Nausea/vomiting #Abdominal pain -Patient reports for the past 3 days he has been having severe right upper quadrant and epigastric pain accompanied with nausea vomiting. -AST 44 and lipase 185 --> 284 - Lipid panel results significant for cholesterol 201, HDL cholesterol 73. -CT of abdomen is suspicious for minimal edema around the pancreatic head -In the ED patient received 2 L of NS bolus Plan: -Continue maintenance fluid fluid with LR 125cc/hr - Advance diet as tolerated -Pain management with IV morphine - Monitor daily CBC and CMP #Alcohol use disorder - Patient reports he has been drinking 18 pack of beer daily for the past 1 week patient does have a history of alcohol use disorder and states sober for 4 months prior to relapsing - On admission alcohol level is less than 3.0 - Patient states he has not had a drink for the past 3 days because he has been in so much pain and nausea vomiting Plan: - CIWA on admission is 0 - CIWA protocol is in place - Thiamine and folic acid daily Health Maintenance Disposition: Medsurg for management of acute pancreatitis requiring IV fluids and IV pain meds DVT Prophylaxis: Heparin 5000 units SC Q12 hrs GI Prophylaxis: Pantoprozol-40 IV Qday Diet: Full liquid diet Lines: Peripheral lines Code status: Full Patient seen and assessed under supervision of attending physician Dr. Galvan and discuss with senior resident Dr. Ed Johnson PGY-2 Tiffany Simeon MD PGY-1, Internal Medicine Please note: this document was transcribed using voice recognition technology; minor inaccuracies may be present. Attending Provider Attestation/Addendum I have seen and examined the patient. I was physically present for the florentino portions of the services provided including history, physical exam, diagnosis, treatment plans and orders. I agree with assessment and plan of care as documented by residents. Patient seen and examined at bedside this morning. No acute overnight events. Vital signs have been stable. Lab results show cholesterol of 201, rest of the labs are stable. Patient states his abdominal pain has improved significantly. He no longer has any nausea or vomiting. Started on clear liquid diet this afternoon, tolerated well, we will transition to full liquid this evening. Analgesic regimen adjusted with decreasing doses. Continues to be on IV hydration. CIWA score has been 0. If remains stable and tolerates diet well, we will plan for discharge in next 24 to 48 hours. Even though this this note was carefully revised there may still be minor errors in brimming machine operator due to voice recognition software. Luz Galvan MD
[2025-03-04] MEDS: HYDROcodone/APAP 5/325 TABLET 1 TAB PO (19:18)
[2025-03-04] MEDS: ACETAMINOPHEN 325 MG TABLET 650 MG PO (23:11)
[2025-03-05] VITALS (8 sets, daily range): BP systolic 129–157; BP diastolic 90–97; PULSE 57–91; RESP 16–95; TEMP 36–36.5; O2SAT 97–98; BMI 30.4
[2025-03-05 06:25] LABS: Basophils # (Auto) 0.0 Thou/mm3 (0.0-0.2); Basophils % (Auto) 1 % (0-2.5); Eosinophils # (Auto) 0.1 Thou/mm3 (0.0-0.5); Eosinophils % (Auto) 1 % (0-10); Hematocrit 46.3 % (41.0-53.0); Hemoglobin 15.5 g/dL (13.5-16.0); Immature Granulocytes Auto 0.01 Thou/mm3 (0.00-0.00); Lymphocytes # (Auto) 1.6 Thou/mm3 (1.0-4.8); Lymphocytes % (Auto) 31 % (10-50); Mean Corpuscular HGB Conc 33.5 g/dl (31.0-37.0); Mean Corpuscular Hemoglobin 31.1 pg (25.0-35.0); Mean Corpuscular Volume 93 fL (80-100); Monocytes # (Auto) 0.8 Thou/mm3 (0.0-0.8); Monocytes % (Auto) 15 % (0-12); Neutrophils # (Auto) 2.6 Thou/mm3 (1.8-7.7); Neutrophils % (Auto) 52 % (37-80); Nucleated Red Blood Cell # 0.00 Thou/mm3 (0.00-0.00); Nucleated Red Blood Cell % 0 /100 WBC (0); Platelet Count 144 Thou/mm3 (140-440); RDW Standard Deviation 45.7 fL (35.1-43.9); Red Blood Count 4.98 Miln/mm3 (4.50-5.90); White Blood Count 5.1 Thou/mm3 (3.8-10.6)
[2025-03-05] MEDS: RINGERS LACTATED 1000 ML 1,000 ML 125 ML IV ×3 (06:30→23:18)
[2025-03-05 08:10] LABS: Alanine Aminotransferase 30 U/L (10-49); Albumin, Serum 4.5 gm/dL (3.5-5.0); Alkaline Phosphatase 81 U/L (46-116); Anion Gap 9 (7-16); Aspartate Amino Transferase 32 U/L (0-34); BUN/Creatinine Ratio 7 Ratio (12-20); Bilirubin,Total 1.0 mg/dL (0.3-1.2); Blood Urea Nitrogen < 5 mg/dL (9-23); Calcium 9.4 mg/dL (8.3-10.6); Calcium (Corrected) 9.4 mg/dL (8.5-10.1); Carbon Dioxide 27.9 mMol/L (20.0-31.0); Chloride 102 mMol/L (98-107); Creatinine (Component) 0.7 mg/dL (0.6-1.3); Estimated Creatinine Clearance 149.8 mL/min (>60); Glucose 82 mg/dL (74-106); Magnesium 1.8 mg/dL (1.6-2.6); Osmolality,Calculated 273 (275-295); Phosphorous 2.6 mg/dL (2.4-5.1); Potassium 3.8 mMol/L (3.4-5.1); Sodium 139 mMol/L (136-145); eGFR > 60 See Note
[2025-03-05] MEDS: THIAMINE 100 MG TABLET PO ×2 (08:54→20:27)
[2025-03-05] MEDS: HEPARIN SOD INJ 5000 UNIT/ML VIAL SC ×2 (08:54→20:27)
[2025-03-05] MEDS: FOLIC ACID 1 MG TABLET PO ×2 (08:54→20:27)
[2025-03-05] MEDS: HYDROcodone/APAP 5/325 TABLET 1 TAB PO ×3 (10:12→22:47)
[2025-03-05 13:17] LABS: Albumin/Globulin Ratio 1.6 (1.2-2.2); Globulin 2.9 gm/dL (2.3-3.5); Total Protein 7.4 gm/dL (5.7-8.2)
--- NOTE | 2025-03-05 13:24 | ESPR_ITS ---
<Statement entered by Jase Johnson MD - 03/05/25 16:27> No acute overnight events. Seen and examined at bedside and resting comfortably in bed. Advanced diet to [place] and patient experienced 9/10 abdominal pain with associated nausea and so we will keep patient for 1 more night with continued IV fluids and pain management. CIWA scores have been negligible and will continue to monitor. Anticipate discharge in the next 24 to 48 hours. ----- Note reviewed and agree with care plan as documented. Please refer to the note below for further details. Plan discussed with attending physician Dr. Ellen Johnson MD PGY-2 Internal Medicine Documentation for date of: 03/05/25 Subjective Subjective Interval history: Patient is endorsing improvement of pain from initial presentation. No endorsement of chest pain, palpitations, headache nor nausea/vomiting. Diet was progressed to regular diet but around midday pt began endorsing abdominal pain; he described it as sharp, nonradiating epigastric pain elicited by his meal and rated it 9/10. Exam Vital Signs Temp Pulse Resp BP Pulse Ox O2 Del Method 96.9 F 77 19 137/91 H 97 Room Air 03/05/25 12:00 03/05/25 12:00 03/05/25 12:00 03/05/25 12:00 03/05/25 12:00 03/05/25 12:00 Routine HEENT Exam Head: Present normocephalic and atraumatic Routine Respiratory Exam Respiratory: Present lungs clear, normal breath sounds and no resp distress Routine Cardiovascular Exam Cardiovascular: Present RRR Routine Abdominal Exam Abdominal: Present soft Routine Extremities Exam Extremities: Present normal capillary refill Routine Skin Exam Skin: Present intact and normal turgor Routine Neurological Exam Neurological: Present alert and oriented X3 Routine Psychiatric Exam Psychiatric: Present normal affect Objective Labs 03/06/25 05:35 03/06/25 05:35 Labs: Laboratory Results - last 24 hr 03/05/25 05:41 WBC 5.1 D RBC 4.98 Hgb 15.5 Hct 46.3 MCV 93 MCH 31.1 MCHC 33.5 RDW Std Deviation 45.7 H Plt Count 144 Neut % (Auto) 52 Lymph % (Auto) 31 [place] % (Auto) 15 H Eos % (Auto) 1 Baso % (Auto) 1 Neut # (Auto) 2.6 Lymph # (Auto) 1.6 [place] # (Auto) 0.8 Eos # (Auto) 0.1 Baso # (Auto) 0.0 Immature Gran # (Auto) 0.01 H Absolute Nucleated RBC 0.00 Immature Gran % 0 Nucleated RBC % 0 Sodium 139 Potassium 3.8 Chloride 102 Carbon Dioxide 27.9 Anion Gap 9 BUN < 5 L Creatinine 0.7 Estim Creat Clear Calc 149.8 eGFR > 60 BUN/Creatinine Ratio 7 L Glucose 82 Calculated Osmolality 273 L Calcium 9.4 Corrected Calcium 9.4 Phosphorus 2.6 Magnesium 1.8 Total Bilirubin 1.0 AST 32 ALT 30 Alkaline Phosphatase 81 Total Protein 7.4 Albumin 4.5 Globulin 2.9 Albumin/Globulin Ratio 1.6 Quality Measures Quality Measures none Assessment & Plan Problem List (1) Pancreatitis: Qualifiers: Acute pancreatitis complication: unspecified Chronicity: acute P ancreatitis type: alcohol induced Qualified Code(s): K85.20 - Alcohol induced acute pancreatitis without necrosis or infection Status: Acute (2) Intractable abdominal pain: Status: Acute Assessment Current Active Medications: Generic Name Dose Route Start Last Admin Trade Name Freq PRN Reason Stop Dose Admin Acetaminophen 650 mg 03/04/25 13:30 03/04/25 23:11 Acetaminophen 325 Mg Tablet PO 04/02/25 17:10 650 mg Q6H PRN Administration Fever >100.4 Protocol Hydrocodone Bitart/Acetaminophen 1 tab 03/03/25 17:49 03/05/25 10:12 Hydrocodone/Apap 5/325 Tablet PO 03/08/25 17:48 1 tab Q6HR PRN Administration Pain 4-6 Folic Acid 1 mg 03/03/25 21:00 03/05/25 08:54 Folic Acid 1 Mg Tablet PO 03/08/25 20:59 1 mg BID KLEVER Administration Heparin Sodium (Porcine) 5,000 unit 03/03/25 17:30 03/05/25 08:54 Heparin Sod Inj 5000 Unit/Ml Vial SC 03/17/25 17:29 5,000 unit Q12HR KLEVER Administration Lactated Ringer's 1,000 mls @ 125 mls/hr 03/03/25 17:50 03/05/25 06:30 Lactated Ringers IV 04/02/25 17:49 125 mls/hr .Q8H KLEVER Administration Lorazepam 0.5 mg 03/03/25 17:27 Lorazepam 0.5 Mg Tablet PO 03/08/25 17:26 Q2H PRN CIWA 2-6 Lorazepam 1 mg 03/03/25 17:31 Lorazepam 2 Mg/Ml Vial IVP 03/08/25 17:26 Q2H PRN CIWA 7-11 Lorazepam 2 mg 03/03/25 17:31 Lorazepam 2 Mg/Ml Vial IVP 03/08/25 17:26 Q2H PRN CIWA 12-20 Ondansetron HCl 4 mg 03/03/25 17:11 Ondansetron Inj 2 Mg/Ml Inj 2 Ml IVP 04/02/25 17:10 Q6H PRN NAUSEA OR VOMITING Protocol Pantoprazole Sodium 40 mg 03/04/25 09:00 03/05/25 08:54 Pantoprazole Inj 40 Mg Vial IVP 04/03/25 08:59 40 mg QDAY KLEVER Administration Thiamine HCl 100 mg 03/03/25 21:00 03/05/25 08:54 Thiamine 100 Mg Tablet PO 03/08/25 20:59 100 mg BID KLEVER Administration Plan #Acute pancreatitis #Nausea/vomiting #Abdominal pain Hx of alcohol abuse 3 day hx of abdominal pain prior to admission Lipase 284 on admission --> [address] AP evidence of pancreatic head edema Negative gallbladder US Afebrile Plan: -Continue maintenance fluid fluid with LR 125cc/hr - Encourage PO intake of foods as tolerated -d/c IV pain meds, PO [place] for pain -Monitor daily CBC and CMP -Monitor abdominal pain symptoms w/ meals 2/2 resolving pancreatitis #Alcohol use disorder - Patient reports he has been drinking 18 pack of beer daily for the 1 week before admission does have a history of alcohol use disorder and states sober for 4 months prior to relapsing - On admission alcohol level is less than 3.0 - Patient states he has not had a drink for the past 3 days because he has been in so much pain and nausea vomiting Plan: - CIWA protocol is in place - Thiamine and folic acid daily Health Maintenance Disposition: Medsurg for management of acute pancreatitis requiring IV fluids and pain management DVT Prophylaxis: Heparin 5000 units SC Q12 hrs GI Prophylaxis: Pantoprozole-40 IV Qday Diet: Regular diet Lines: Peripheral lines Code status: Full Attending Provider Attestation/Addendum Kati Rg DO, attest that I was physically present for the florentino portions of the service and evaluated the patient with the resident and I reviewed and discussed the case with the resident and agree with the resident's findings and plans of care as documented above Patient seen and evaluated this AM. Diet has been advanced and endorsed having 10/10 pain with eating. Discussed cessation of alcohol consumption with patient and possible risk of recurrence of pancreatitis. Patient verbalized understanding. Will continue with pain control PRN. Anticipate DC within next 24-48h if pain is improved.
[2025-03-06] VITALS: BP 136/96; PULSE 71; RESP 18; TEMP 36.4; O2SAT 98
[2025-03-06 04:00] VITALS: BP 141/97; PULSE 63; RESP 16; TEMP 36.7; O2SAT 98
[2025-03-06 06:32] LABS: Basophils # (Auto) 0.0 Thou/mm3 (0.0-0.2); Basophils % (Auto) 1 % (0-2.5); Eosinophils # (Auto) 0.1 Thou/mm3 (0.0-0.5); Eosinophils % (Auto) 1 % (0-10); Hematocrit 46.4 % (41.0-53.0); Hemoglobin 15.7 g/dL (13.5-16.0); Immature Granulocytes Auto 0.02 Thou/mm3 (0.00-0.00); Lymphocytes # (Auto) 1.6 Thou/mm3 (1.0-4.8); Lymphocytes % (Auto) 28 % (10-50); Mean Corpuscular HGB Conc 33.8 g/dl (31.0-37.0); Mean Corpuscular Hemoglobin 31.0 pg (25.0-35.0); Mean Corpuscular Volume 92 fL (80-100); Monocytes # (Auto) 0.9 Thou/mm3 (0.0-0.8); Monocytes % (Auto) 15 % (0-12); Neutrophils # (Auto) 3.2 Thou/mm3 (1.8-7.7); Neutrophils % (Auto) 55 % (37-80); Nucleated Red Blood Cell # 0.00 Thou/mm3 (0.00-0.00); Nucleated Red Blood Cell % 0 /100 WBC (0); Platelet Count 157 Thou/mm3 (140-440); RDW Standard Deviation 45.7 fL (35.1-43.9); Red Blood Count 5.06 Miln/mm3 (4.50-5.90); White Blood Count 5.9 Thou/mm3 (3.8-10.6)
[2025-03-06 06:50] LABS: Alanine Aminotransferase 39 U/L (10-49); Albumin, Serum 4.7 gm/dL (3.5-5.0); Albumin/Globulin Ratio 1.8 (1.2-2.2); Alkaline Phosphatase 80 U/L (46-116); Anion Gap 12 (7-16); Aspartate Amino Transferase 45 U/L (0-34); BUN/Creatinine Ratio 6 Ratio (12-20); Bilirubin,Total 0.7 mg/dL (0.3-1.2); Blood Urea Nitrogen < 5 mg/dL (9-23); Calcium 9.4 mg/dL (8.3-10.6); Calcium (Corrected) 9.4 mg/dL (8.5-10.1); Carbon Dioxide 27.2 mMol/L (20.0-31.0); Chloride 102 mMol/L (98-107); Creatinine (Component) 0.8 mg/dL (0.6-1.3); Estimated Creatinine Clearance 131.1 mL/min (>60); Globulin 2.6 gm/dL (2.3-3.5); Glucose 97 mg/dL (74-106); Magnesium 1.6 mg/dL (1.6-2.6); Osmolality,Calculated 278 (275-295); Phosphorous 3.5 mg/dL (2.4-5.1); Potassium 3.7 mMol/L (3.4-5.1); Sodium 141 mMol/L (136-145); Total Protein 7.3 gm/dL (5.7-8.2); eGFR > 60 See Note
[2025-03-06 07:43] VITALS: PULSE 64; RESP 16; RESP 97
[2025-03-06 08:00] VITALS: BP 149/95; PULSE 82; RESP 18; TEMP 36.3; O2SAT 95
[2025-03-06] MEDS: HEPARIN SOD INJ 5000 UNIT/ML VIAL SC (08:41)
[2025-03-06] MEDS: FOLIC ACID 1 MG TABLET PO (08:41)
[2025-03-06] MEDS: HYDROcodone/APAP 5/325 TABLET 1 TAB PO (08:41)
[2025-03-06] MEDS: RINGERS LACTATED 1000 ML 1,000 ML 125 ML IV (08:41)
[2025-03-06] MEDS: THIAMINE 100 MG TABLET PO (08:42)
--- NOTE | 2025-03-06 15:29 | ESDS_ITS ---
<Statement entered by Kati Hughes DO - 03/07/25 07:51> I, Kati Hughes DO, attest that I was physically present for the florentino portions of the service and evaluated the patient with the resident and I reviewed and discussed the case with the resident and agree with the resident's findings and plans of care as documented above <Statement entered by Jase Johnson MD - 03/06/25 16:12> Note reviewed and agree with care plan as documented. Please refer to the note below for further details. Plan discussed with attending physician Dr. Ellen Johnson MD PGY-2 Internal Medicine Planned Discharge Date 03/06/25 DS: Providers Provider Date of admission: 03/03/25 17:11 Primary care physician: Physician No Primary/Family Admitting Provider: Luz Galvan MD Attending Provider on Admission: Kati Hughes DO Attending Provider on DC: Nick Tay MD Discharging Provider: Nick Tay MD DS: Diagnosis Discharge Diagnosis (1) Pancreatitis: Status: Acute Assessment & Plan: Acute pancreatitis evidenced by elevated lipase on admission Alcohol use disorder Improvement on fluids and pain medication Advanced diet appropriately, pt is no longer endorsing pain with meals nor at baseline -To be safely discharged home with strict return precautions for abdominal pain, fever, tachycardia, dyspnea, and other concerns. Problem List Completed Was Problem List Reviewed/Reconciled?: Yes Hospital Course Hospital Course Hospital course: Mr. Rashi Keith is a 34 year old male w/ a PMH of alcohol abuse disorder who was admitted on 03/03/25 for acute pancreatitis 2/2 alcohol use. He intitially presented with epigastric pain radiating to the back, without chest pain nor radiation to the arm. CTAP significant for edema around the pancreas head. Liver enzymes and alkaline phosphatase have been normal throughout his admission. Treatment was initiated with fluids and pain medication. Throughout his admission his CIWA score has remained 0 without endorsement of auditory, visual nor tactile hallucinations. By day 3 of hospitalization, Mr. Keith was able to tolerate a normal diet without pain and returned to baseline activity. He was safely discharged home with strict return precautions, counseling on alcohol abstinence and demonstrated understanding of our discussion. Status at Discharge Cognitive/behavioral status at discharge: At functional baseline. Time Spent with Patient Time attestation: Total time spent providing and/or coordinating discharge services: 60 minutes Time spent: Greater than 30 minutes Exam Vital Signs Temp Pulse Resp BP Pulse Ox O2 Del Method 97.3 F 82 18 149/95 H 95 Room Air 03/06/25 08:00 03/06/25 08:00 03/06/25 08:00 03/06/25 08:00 03/06/25 08:00 03/06/25 08:00 Constitutional Constitutional: no acute distress Routine HEENT Exam Head: Present normocephalic and atraumatic Routine Neck Exam Neck: Present supple and full ROM Routine Respiratory Exam Respiratory: Present chest non-tender, lungs clear and normal breath sounds Routine Cardiovascular Exam Cardiovascular: Present RRR Routine Abdominal Exam Abdominal: Present soft and normoactive bowel sounds Routine Skin Exam Skin: Present intact Routine Psychiatric Exam Psychiatric: Present normal affect and normal thought process Discharge Plan Plan Patient Disposition: HOME (Self Care) Patient condition on transfer: Stable Care Plan Goals: ? You've been prescribed norco and tylenol for pain control ? If additional pain control is needed, please see your PCP - Avoid drinking alcohol, you will be provided with resources to help you with alcohol use disorder by employment case manager before dischrage ? Follow-up with PCP within 1-2 weeks of discharge ? If you do not have a PCP, you can follow-up at the [facility] (you can call [phone] to make an appointment) ? Return to ED if symptoms worsen or recur Prescriptions/Referrals Prescriptions/Med Rec: New hydrocodone-acetaminophen 5-325 mg Tablet 1 tab PO Q6HR MDD 3 PRN (Reason: Pain 4-6) Qty: 9 0RF acetaminophen 500 mg tablet 500 mg PO Q6H PRN (Reason: fever or pain) Qty: 14 0RF Referrals: No Primary/Family,Physician [Primary Care Provider] Patient/Caregiver Discharge Instructions Discharge Activity: activity as tolerated and resume usual activities Education Materials: Understanding Pancreatitis, Alcoholism Resources, Alcoholism: Getting Help, Alcohol Addiction, Pancreatitis Acute Dc Print Language: [place] Citizen Stand Alone Forms: Lorie Award Info., Patient Portal Info Letter Discharge Order Discharge Orders: Discharge (Routine); Ordered 03/06/25 Ordered By: Nick Tay Quality Discharge Quality Measures none
== END 2025-03-06 11:42 | disposition home or self-care (01) | DRG 282 ==
LOC: SERX 17:13 → SERHOLD 17:31 → S3SX 18:43
PROVIDERS: Registered Nurse General Practice; Admitting Provider Student in an Organized Health Care Education/Training Program; Emergency Provider Emergency Medicine; Visit Provider Internal Medicine
DX: K85.20 Alcohol induced acute pancreatitis without necrosis or infection (principal); Y90.0 Blood alcohol level of less than 20 mg/100 ml; F10.10 Alcohol abuse, uncomplicated
CPT/HCPCS: 36415; 80053; 80061; 80307; 80320; 81001; 83690; 83735; 83880; 84100; 85025; 85610; 85730; 93005; 96361; 96374; 96375; 99283; J1644; J2270; J2405; J2470; J7030; J7120; A9270; G0480